=== PATIENT | female | born 1935 | race Two or more races ===

== ENCOUNTER 2020-05-11 12:02 | Outpatient (CLI) | payer OTHER ==
[2020-05-11] MEDS ORDERED: PRILOSEC OTC20 MG PO (12:21)
[2020-05-11] MEDS ORDERED: PEPCID40 MG PO (12:22)
== END 2020-05-11 15:43 | disposition home or self-care (01) ==
LOC: OFIC 805 12:02
PROVIDERS: ATTEND Otolaryngology
DX: K21.9 Gastro-esophageal reflux disease without esophagitis (principal); R49.0 Dysphonia

== ENCOUNTER → 2020-07-22 | Outpatient (CLI) | payer OTHER ==
[~2020-07-22] MED LIST: PEPCID40 MG PO; PRILOSEC OTC20 MG PO
== END | disposition home or self-care (01) ==
LOC: OFIC 805 09:18
PROVIDERS: ATTEND Otolaryngology
DX: R49.0 Dysphonia (principal); K21.9 Gastro-esophageal reflux disease without esophagitis; R09.89 Other specified symptoms and signs involving the circulatory and respiratory systems

== ENCOUNTER 2023-12-17 21:31 | Emergency (ER) | payer OTHER ==
[~2023-12-17] VITALS: Ht 160 cm; Wt 45.4 kg
[2023-12-17] MEDS ORDERED: TRADJENTA5 MG PO (21:56)
[2023-12-17] MEDS ORDERED: GLIMEPIRIDE2 MG (21:56)
[2023-12-17] MEDS ORDERED: FENOFIBRATE50 MG (21:57)
[2023-12-17] MEDS ORDERED: XARELTO10 MG (21:57)
[2023-12-17] MEDS ORDERED: NORVASC2.5 MG PO (21:57)
[2023-12-17] MEDS ORDERED: PLAVIX75 MG (21:57)
[2023-12-17] MEDS ORDERED: COZAAR100 MG PO (21:57)
[2023-12-17] MEDS ORDERED: ZYRTEC10 M3 PO (21:58)
[2023-12-17] MEDS ORDERED: NAMENDA10 MG PO (21:58)
[2023-12-17] MEDS ORDERED: FOLIC ACID0.8 M1 (21:58)
[2023-12-17] MEDS ORDERED: ZETIA10 MG (21:58)
[2023-12-17] MEDS ORDERED: WIXELA 250-501 EACH IH (21:59)
[2023-12-17] MEDS ORDERED: SINGULAIR10 MG PO (21:59)
[2023-12-17] MEDS ORDERED: CRESTOR20 MG PO (21:59)
[2023-12-17] MEDS ORDERED: DEXAMETHAS0.5 MG/5 M (22:00)
[2023-12-18 03:52] LABS: ABG PH 7.425 (7.35-7.45); ABG PO2 95.1 mmHg (80-100); ABG pCO2 35.8 mmHg (35-45); BASE EXCESS -0.9 mmol/l; SaO2 97.5 %; Tco2 24.1 mmol/l
[2023-12-18 03:53] LABS: o2 21 %
[2023-12-18 03:54] LABS: allen test SATISFACTORY; puncture site RADIAL LEFT
[2023-12-18 04:09] LABS: HEMATOCRIT 26.4 % (36.0-45.00); MEAN CELL VOLUME 90.8 fL (80.00-100.00); MEAN CORPUSCULAR HGB CONC 33.9 g/dl (32.0-36.0); RED BLOOD COUNT 2.91 M/uL (4.00-6.00); RED CELL DISTRIBUTION WIDTH 16.3 % (11.5-14.5)
[2023-12-18 04:13] LABS: MEAN CORPUSCULAR HEMOGLOBIN 30.9 pg (27.00-32.0); PLATELET COUNT 149 K/uL (150-450)
[2023-12-18 04:36] LABS: ALBUMIN 3.8 gm/dL (3.4-5.0); BILIRUBIN TOTAL 0.37 mg/dL (0.3-1.2); CREATININE SERUM 1.11 mg/dL (0.55-1.02); GFR 46.5; GLOBULINA 3.6 G/DL (2.4-3.5); POTASSIUM 4.38 mEq/L (3.5-5.1); TOTAL PROTEIN 7.4 gm/dL (6.4-8.2)
== END 2023-12-18 08:07 | disposition home or self-care (01) ==
LOC: ER 21:33
DX: J44.0 Chronic obstructive pulmonary disease with (acute) lower respiratory infection (principal); J20.8 Acute bronchitis due to other specified organisms; J44.1 Chronic obstructive pulmonary disease with (acute) exacerbation; J45.998 Other asthma; Z88.0 Allergy status to penicillin; Z88.6 Allergy status to analgesic agent; I10 Essential (primary) hypertension; Z20.822 Contact with and (suspected) exposure to COVID-19
CPT/HCPCS: 36415; 71045; 82803; 94640; 99284; J2930

== ENCOUNTER 2025-05-06 08:51 | Emergency (ER) | payer OTHER ==
[~2025-05-06] VITALS: Ht 160 cm; Wt 56.7 kg
[~2025-05-06 08:51] MED LIST changes: +COZAAR100 MG PO; +CRESTOR20 MG PO; +DEXAMETHAS0.5 MG/5 M; +FENOFIBRATE50 MG; +FOLIC ACID0.8 M1; +GLIMEPIRIDE2 MG; +NAMENDA10 MG PO; +NORVASC2.5 MG PO; +PLAVIX75 MG; +SINGULAIR10 MG PO; +TRADJENTA5 MG PO; +WIXELA 250-501 EACH IH; +XARELTO10 MG; +ZETIA10 MG; +ZYRTEC10 M3 PO
[2025-05-06] MEDS ORDERED: GLIMEPIRIDE4 MG (09:17)
[2025-05-06] MEDS ORDERED: HYDRALAZINE HCL25 MG PO (09:18)
[2025-05-06] MEDS ORDERED: PANTOPRAZOLE SODIUM 40 MG/VIAL VIAL IV PUSH STA (09:24)
[2025-05-06 10:09] LABS: BASO % 0.4 % (0.1-1.2); EOS # 0.15 (0.04-0.54); HEMATOCRIT 33.3 % (34.1-44.9); HEMOGLOBIN 10.6 g/dL (11.2-15.7); LYMPH # 2.78 (1.18-3.74); MEAN CORPUSCULAR HEMOGLOBIN 30.2 pg (25.6-32.2); MONO # 0.59 (0.24-0.82); MONO % 8.1 % (4.7-12.5); NEUT # 3.74 (1.56-6.13); NEUT % 51.1 % (34.0-71.1); PLATELET COUNT 192 K/uL (163-369); RED BLOOD COUNT 3.51 M/uL (3.93-5.22); RED CELL DISTRIBUTION WIDTH 13.8 % (11.6-14.4)
[2025-05-06 10:34] LABS: ALBUMIN 4.1 gm/dL (3.4-5.0); BILIRUBIN TOTAL 0.31 mg/dL (0.3-1.2); CALCIUM 11.1 mg/dL (8.5-10.1); CREATININE SERUM 1.62 mg/dL (0.55-1.02); GFR 29.99; GLOBULINA 2.8 G/DL (2.4-3.5); POTASSIUM 5.61 mEq/L (3.5-5.1); TOTAL PROTEIN 6.9 gm/dL (6.4-8.2)
== END 2025-05-06 10:57 | disposition home or self-care (01) ==
LOC: ER 09:05
PROVIDERS: General Practice
DX: K21.9 Gastro-esophageal reflux disease without esophagitis (principal); R05.9 Cough, unspecified; Z88.0 Allergy status to penicillin; Z88.6 Allergy status to analgesic agent
CPT/HCPCS: 36415; 96365; 99282; J3490